=== PATIENT | male | born 1990 | race Hispanic/Latino ===

== ENCOUNTER 2023-04-01 19:56 | Emergency (ER) | payer OTHER ==
[~2023-04-01] VITALS: Ht 182.9 cm; Wt 77.1 kg
[2023-04-01] MEDS ORDERED: KETOROLAC 60 MG VIAL (30MG/ML) IM ONE (20:30)
[2023-04-01 20:58] LABS: BASOPHILS % (AUTO) 0.3 % (0.0-5.0); EOSINOPHILS % (AUTO) 0.4 % (0.0-8.0); HEMATOCRIT 46.1 % (42-54); LYMPHOCYTES % (AUTO) 27.2 % (21.0-51.0); MEAN CORPUSCULAR HEMOGLOBIN 30.6 pg (27.0-33.0); MEAN CORPUSCULAR HGB CONC 35.4 g/dL (32.0-36.0); MEAN CORPUSCULAR VOLUME 86.7 fL (79-99); MONOCYTES % (AUTO) 8.4 % (3.0-13.0); NEUTROPHILS % (AUTO) 62.9 % (40.0-77.0); PLATELET COUNT (AUTO) 383 K/uL (130-400); RED BLOOD CELL COUNT(AUTO) 5.32 MIL/uL (4.50-6.20); RED CELL DISTRIBUTION WIDTH 12.4 % (11.0-15.5)
[2023-04-01 21:14] LABS: CREATININE 1.7 mg/dL (0.5-1.5)
[2023-04-01 21:25] LABS: ALBUMIN 5.4 g/dL (3.5-5.0); TOTAL PROTEIN, SERUM 9.1 g/dL (6.0-8.3)
[2023-04-01] MEDS ORDERED: IBUP-2071 PO (21:31)
[2023-04-01 21:59] VITALS: BP 135/78
[2023-04-01] MEDS ORDERED: IBUPROFEN 800 MG TAB PO ONE (22:00)
== END 2023-04-01 22:04 | disposition home or self-care (01) ==
LOC: EDH 19:56
DX: R07.9 Chest pain, unspecified (principal); R05.9 Cough, unspecified
CPT/HCPCS: 99284; 71045; 84484; 80053; 83880; 85025; 36415; 96372; 93005; J1885